=== PATIENT | male | born 1960 | race African-American/Black ===

== ENCOUNTER 2023-11-30 05:31 | Day surgery (SDC) | payer MEDICARE ==
[2023-11-22 09:20] VITALS: BMI 41.0
[2023-11-30] MEDS ORDERED: Ondansetron PF 4 MG/2 ML Vial ONE (07:19)
[2023-11-30] MEDS ORDERED: Dexamethasone 4 mg/ml Vial ONE (07:19)
[2023-11-30] MEDS ORDERED: fentaNYL 50 mcg/mL 1 mL Vial ONE (07:19)
[2023-11-30] MEDS ORDERED: Lidocaine 1% PF 5 ML VIAL ONE (07:19)
[2023-11-30] MEDS ORDERED: PROPOFOL 20 ML ONE ×2 (07:19→07:37)
[2023-11-30] MEDS ORDERED: LevoFLOXacin D5W 500 mg (100 mL) BAG ONE (07:24)
[2023-11-30] MEDS ORDERED: PHENYLEPHRINE-NS 100 MCG/ML 10 ML SYRINGE ONE (07:40)
[2023-11-30] MEDS ORDERED: Phenazopyridine HCl 100 MG TAB ONE (08:21)
[2023-11-30] MEDS ORDERED: Oxybutynin 5 MG TAB ONE (08:22)
== END 2023-11-30 10:50 | disposition home or self-care (01) ==
LOC: SDC 05:31
PROVIDERS: ATTEND Urology
PROC: 0T7D8DZ Dilation of Urethra with Intraluminal Device, Via Natural or Artificial Opening Endoscopic (ICD-10-PCS; principal; 2023-11-30)
DX: N40.1 Benign prostatic hyperplasia with lower urinary tract symptoms (principal); N13.8 Other obstructive and reflux uropathy
CPT/HCPCS: C9740; J1956; J2405; J2704; J3010; A4333; J1100; L8699